=== PATIENT | male | born 1980 | race Two or more races ===

== ENCOUNTER → 2020-08-20 | Outpatient (CLI) | payer OTHER ==
--- NOTE | 2020-08-20 14:40 | KCIC ---
PA View CXR. Clinical indications: TB exposure. Findings: Small granuloma of the right upper lobe is seen. No acute lung infiltrate or pleural effusi on or pulmonary edema or lung mass or cavitary nodule or pneumothorax is seen. The heart size, pulmo nary vasculature, mediastinum and both lori are unremarkable. Impression: No acute radiographic abnormality is seen. Specifically, there are no radiographic findin gs indicative of active tuberculous lung disease. Electronically signed by: Luther Jhaveri MD (08/20/2020 2:37 PM) [id number]
== END ==
LOC: KCIC 13:17
PROVIDERS: ATTEND Family Medicine
DX: J84.10 Pulmonary fibrosis, unspecified (principal); Z20.1 Contact with and (suspected) exposure to tuberculosis
CPT/HCPCS: 71045